=== PATIENT | male | born 1985 | race Caucasian/White ===

== ENCOUNTER 2022-04-06 05:54 | Emergency (ER) | payer BC ==
[2022-04-06] MEDS ORDERED: Metoclopramide HCl 10 MG/2 ML VIAL ONE (06:30)
[2022-04-06] MEDS ORDERED: diphenhydrAMINE 50 MG/ML VIAL ONE (06:31)
[2022-04-06] MEDS ORDERED: Dexamethasone 10 MG/ML VIAL ONE (09:26)
[2022-04-06] MEDS ORDERED: Ketorolac Tromethamine 30 MG/ML VIAL ONE (09:27)
== END 2022-04-06 09:35 | disposition home or self-care (01) ==
LOC: CSHERS 05:54
DX: R51.9 Headache, unspecified (principal); I10 Essential (primary) hypertension
CPT/HCPCS: 70450; 96365; 96375; J1100; J1200; J1885; J2765